=== PATIENT | female | born 1985 | race African-American/Black ===

== ENCOUNTER 2016-08-09 10:48 | Emergency (ER) | payer MEDICAID, OTHER ==
[~2016-08-09] VITALS: Wt 119.5 kg
[~2016-08-09 10:48] MED LIST: ALBU2.5V3 NEB; CYCL-319 PO; IBUP800T25 PO; NAPR-260 PO; TRAM50TA2 PO
[2016-08-09] MEDS ORDERED: IBUPROFEN 800 MG TAB PO ONE (12:30)
--- NOTE | 2016-08-09 13:12 | RADRPT ---
PROCEDURE: Left ankle series. CLINICAL INDICATION: Left ankle pain after trauma TECHNIQUE: Three views of the left ankle were performed. COMPARISON: None. FINDINGS: Study is mildly limited as the frontal view is slightly obliqued. Mineralization and alignment are grossly within normal limits. No acute fracture or dislocation is seen. Joint spaces are well main tained. No osteophytes or erosions are identified. No joint effusion is identified. The soft tissue s are within normal limits. IMPRESSION: 1. Mildly limited study without evidence of fracture or dislocation. RPTAT: KK .Colin Jimenez MD, MD Date Time Electronically viewed and signed by .Colin Jimenez MD, MD on 08/09/2016 13:12 .B/
--- NOTE | 2016-08-09 13:14 | RADRPT ---
PROCEDURE: XR Left Foot CLINICAL INDICATION: Pain, unable Watt, rolled ankle TECHNIQUE: AP, oblique, and lateral radiographs were submitted. COMPARISON: None FINDINGS: Osseous structures: appear well mineralized and intact with no fracture or destructive process iden tified. Joint spaces: are well maintained, with no significant spurring, erosion or joint effusion evident. Soft tissues: appear unremarkable. IMPRESSION: Unremarkable left foot. Physician Ayaan Date Time Electronically viewed and signed by Robbi Simmons Physician on 08/09/2016 13:14 /
[2016-08-09] MEDS ORDERED: DIPHENHYDRAMINE 25 MG CAP PO ONE (14:00)
[2016-08-09 14:19] VITALS: BP 122/78; PULSE 86; RESP 20; TEMP 98.3
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
== END 2016-08-09 14:44 | disposition home or self-care (01) ==
LOC: FTE 10:48
DX: S99.912A Unspecified injury of left ankle, initial encounter (principal); J45.909 Unspecified asthma, uncomplicated; X50.9XXA Other and unspecified overexertion or strenuous movements or postures, initial encounter; Y92.89 Other specified places as the place of occurrence of the external cause
CPT/HCPCS: 73610; 73630; Z7502; Z7610

== ENCOUNTER 2017-04-29 11:16 | Emergency (ER) | payer MEDICAID, OTHER ==
[~2017-04-29] VITALS: Ht 170.2 cm; Wt 120.0 kg
[2017-04-29 11:23] VITALS: Ht 170.2 cm; Wt 120.0 kg
[2017-04-29] MEDS ORDERED: IPRATROPIUM (NEB) 0.5 MG/2.5 ML AMP NEB STA (12:24)
[2017-04-29] MEDS ORDERED: LEVALBUTEROL (NEB) 1.25 MG/0.5 ML AMP INH STA (12:24)
--- NOTE | 2017-04-29 14:04 | RADRPT ---
PROCEDURE: XR Chest. CLINICAL INDICATION: Shortness of breath TECHNIQUE: Single AP portable chest. COMPARISON: No prior Chest x-ray FINDINGS: The cardiomediastinal silhouette is within normal limits of size.The lungs are clear without pleura l effusion or focal consolidation. No pneumothorax. The osseous structures and soft tissues are unre markable. IMPRESSION: 1. No evidence for active cardiopulmonary disease. RPTAT:AAJJ Physician Swetha Date Time Electronically viewed and signed by Physician Swetha on 04/29/2017 14:03 JARED/
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
== END 2017-04-29 16:34 | disposition home or self-care (01) ==
LOC: FTE 11:16
DX: R06.02 Shortness of breath (principal); J45.909 Unspecified asthma, uncomplicated
CPT/HCPCS: 71010; 93005; 94664; Z7502; Z7610